=== PATIENT | male | born 2000 | race Caucasian/White ===

== ENCOUNTER 2024-10-03 11:40 | Emergency (ER) | payer BC, SELFPAY ==
--- NOTE | ~2024-10-03 | XR_ITS ---
Right ankle Technique: AP, oblique, and lateral views were obtained. Clinical History: Pain Findings: No acute fracture or dislocation is seen. Osseous alignment is anatomic. Ankle mortise and other visualized joint spaces are preserved. Mild lateral soft tissue swelling noted. Impression: No fracture or dislocation. Reviewed, dictated and finalized at [facility]. OTELEGRAPHIST Impression: No fracture or dislocation.
[2024-10-03 11:42] VITALS: BP 133/70; PULSE 108; RESP 19; TEMP 36.6; O2SAT 99
--- NOTE | 2024-10-03 11:47 | ED_ITS ---
HPI - Extremity Injury (Lower) General Chief Complaint: Extremity Injury, Lower Stated Complaint: right ankle injury Time Seen by Provider: 10/03/24 11:47 History of Present Illness HPI Narrative: 23-year-old male presents to emergency department for right ankle pain after rolling his ankle coming out of his vehicle. He is reporting pain to the lateral aspect of the right ankle. Denies hitting his head or losing consciousness. No other injuries acquired. Related Data Allergies Allergy/AdvReac Type Severity Reaction Status Date / Time No Known Allergies Allergy Unverified 06/08/15 13:16 Review of Systems Review of Systems: All systems reviewed & are unremarkable except as noted in HPI and below Exam Narrative: GENERAL: Well-appearing, well-nourished, and in no acute distress. HEAD: Normocephalic, atraumatic. EYES: EOMI. ENT: Nares clear, no rhinorrhea or epistaxis. Mucous membranes moist. NECK: Supple. CHEST: Clear to auscultation. No respiratory distress. HEART: Regular rate and rhythm. No murmur heard. Normal peripheral pulses. EXTREMITIES: Tenderness and edema to the right lateral malleolus. Limited range of motion of ankle secondary to pain. No tenderness remainder of foot or extremity. Negative Palmer's test. DP pulse 2 +. Sensation intact. Cap refill less than 2 SKIN: Warm, dry, no rash. NEURO: No focal deficits. Alert and oriented x3 Course Vital Signs Vital signs: Vital Signs Temperature 97.8 F 10/03/24 11:42 Pulse Rate 108 H 10/03/24 11:42 Respiratory Rate 19 10/03/24 11:42 Blood Pressure 133/70 10/03/24 11:42 Pulse Oximetry 99 10/03/24 11:42 Oxygen Delivery Room Air 10/03/24 11:42 Temperature 97.8 F 10/03/24 11:42 Pulse Rate 108 H 10/03/24 11:42 Respiratory Rate 19 10/03/24 11:42 Blood Pressure 133/70 10/03/24 11:42 Pulse Oximetry 99 10/03/24 11:42 Oxygen Delivery Room Air 10/03/24 11:42 MDM - Extremity Injury (Lower) MDM Narrative Medical decision making narrative: 23-year-old male presents to emergency department for right ankle pain after rolling his ankle while getting out of his vehicle prior to arrival. Vitals with mild tachycardia 108, otherwise unremarkable. Exam is significant for tenderness and edema to the right lateral malleolus. He is neurovascularly intact. X-ray of the ankle shows no acute osseous findings. Patient was updated on workup. He was given ibuprofen, Julio wrap and crutches advised follow-up with primary. Discussed return precautions. He is agreeable with the plan verbalized understanding. Discharged in stable condition. Discharge Plan Discharge Clinical Impression: Ankle sprain and strain Patient Disposition: Home, Self-Care Condition: Stable Instructions: Antibiotic Form, Ankle Sprain (DC) Additional Instructions: You were seen in the emergency department for ankle pain. Your x-ray shows no broken bones. Your presentation is consistent with an ankle sprain. Please keep your ankle elevated and compress, a sit for pain and take ibuprofen as needed for pain and swelling. Follow-up with primary care provider I referred you to. Return to the emergency department if he develops significantly worsening pain, right foot or other concerning symptoms. Patient Language: [place] Prescriptions: New ibuprofen 800 mg tablet 800 mg PO TID PRN (Reason: pain) Qty: 20 0RF Follow-up/Referrals: PHYSICIAN,WEB PROGRAMMER [Primary Care Provider] - Addy Serrano MD [Physician] -
[2024-10-03] MEDS: IBUPROFEN 400 MG TABLET 800 MG PO (12:41)
== END 2024-10-03 13:00 | disposition home or self-care (01) ==
LOC: ANHED 12:50
PROVIDERS: Emergency Provider Physician Assistant
DX: S93.401A Sprain of unspecified ligament of right ankle, initial encounter (principal); X50.1XXA Overexertion from prolonged static or awkward postures, initial encounter
CPT/HCPCS: 73610; 99283; A9270